=== PATIENT | female | born 1935 | race Caucasian/White ===

== ENCOUNTER 2021-10-15 07:50 | Observation (INO) ==
[2021-10-15 08:53] LABS: ABS Eosinophils 0.1 10^3/ul (0-0.6); ABS Lymphocytes 1.3 10^3/ul (1.0-4.8); ABS Monocytes 0.5 10^3/ul (0-0.8); ABS Neutrophils 5.9 10^3/ul (1.5-7.7); Eosinophil % 0.8 %; Hematocrit 44 % (35-47); Hemoglobin 15.1 g/dL (12.0-16.0); Lymphocyte % 16.7 %; Mean Corpuscular HGB Conc 35 g/dL (31-36); Mean Corpuscular Hemoglobin 31 pg (27-31); Mean Corpuscular Volume 89 fL (80-97); Mean Platelet Volume 9.1 fL (7.4-10.4); Nucleated Red Blood Cells % 0.1; Platelet Count 163 10^3/uL (150-450); Red Blood Count 4.89 10^6 /uL (3.70-4.87); Red Cell Distribution Width 13 % (10-15); White Blood Count 7.8 10^3/uL (3.5-10.8)
[2021-10-15 09:31] LABS: Albumin 3.6 g/dL (3.2-5.2); Albumin/Globulin Ratio 1.6 (1-3); Calcium 9.4 mg/dL (8.6-10.3); Globulin 2.2 g/dL (2-4); Potassium 3.8 mmol/L (3.5-5.0); Total Protein 5.8 g/dL (6.4-8.9); eGFR CKD-EPI 75.1 (>60)
[2021-10-15] MEDS ORDERED: Iohexol 300 (CONTRAST) 10 ML SDV IV ONE (11:13)
[2021-10-15] MEDS ORDERED: Lactated Ringers 1000 ml BAG 1,000 ML IV ONE (14:43)
[2021-10-16] MEDS ORDERED: Ondansetron 4 mg VIAL 2 MG/ML 2 ml VIAL IV PRN (02:40)
[2021-10-16] MEDS: Cholecalciferol (VIT D3) 1,000 unit TAB PO SCH (09:24)
[2021-10-16] MEDS: Enoxaparin 40 MG/0.4 ML SYR SUBCUT SCH (09:30)
[2021-10-16 15:40] LABS: Urine Appearance Clear; Urine Bilirubin Negative (Negative); Urine Blood Negative (Negative); Urine Color Yellow; Urine Glucose Negative (Negative); Urine Ketones Negative (Negative); Urine Nitrite Negative (Negative); Urine Protein Negative (Negative); Urine Specific Gravity 1.013 (1.002-1.030); Urine Urobilinogen Negative (Negative)
[2021-10-17] MEDS: Enoxaparin 40 MG/0.4 ML SYR SUBCUT SCH (09:26)
[2021-10-17] MEDS: Cholecalciferol (VIT D3) 1,000 unit TAB PO SCH (09:30)
[2021-10-17 11:59] VITALS: BP 128/55
== END 2021-10-17 16:00 | disposition home or self-care (01) ==
LOC: MEDTELE 07:50 → ED 07:50
PROVIDERS: ADMIT Internal Medicine; ATTEND Internal Medicine